=== PATIENT | female | born 1970 | race Caucasian/White ===

== ENCOUNTER → 2021-10-22 12:36 | Outpatient (CLI) | payer OTHER, SELFPAY ==
[2021-10-22 20:10] LABS: Add Manual Diff / Slide Review NO; Basophils Absolute Auto 100 /uL (0-100); Basophils Percent Auto 0.9 % (0-2); Eosinophils Absolute Auto 200 /uL (0-450); Eosinophils Percent Auto 2.7 % (2-4); Hematocrit 37.9 % (36-46); Hemoglobin 12.9 g/dL (12.0-16.0); Lymphocytes Absolute Auto 1700 /uL (1100-4500); Lymphocytes Percent Auto 26.7 % (25-40); Mean Corpuscular HGB Conc 34.1 % (30-36); Mean Corpuscular Volume 90.9 fL (80-100); Monocytes Absolute Auto 400 /uL (0-900); Neutrophils Absolute Auto 4200 /uL (1500-7000); Neutrophils Percent Auto 63.7 % (50-75); Platelet Count 255 X10^3/uL (150-400); Red Blood Cell Count 4.17 X10^6/uL (4.0-5.2); Red Cell Distribution Width 13.1 % (11.6-14.8); White Blood Cell Count 6.5 X10^3/uL (4.5-11.0)
[2021-10-22 20:33] LABS: Alanine Aminotransferase 19 IU/L (<35); Albumin 3.9 g/dL (3.5-5.0); Albumin Globulin Ratio 1.6 (1.0-2.8); Alkaline Phosphatase 61 U/L (38-126); Aspartate Aminotransferase 26 IU/L (14-36); BUN Creatinine Ratio 14.7 (6-22); Bilirubin Total 0.5 mg/dL (0.2-1.3); Blood Urea Nitrogen 11 mg/dL (7-17); Calcium 9.1 mg/dL (8.4-10.2); Carbon Dioxide 27 mmol/L (22-32); Chloride 103 mmol/L (98-107); Cholesterol 180 mg/dL (140-199); Estimated Glomerular Filt Rate > 60 mL/min (>60); Globulin 2.4 g/dL (1.7-4.1); Glucose 92 mg/dL (70-100); HDL Cholesterol 50 mg/dL (40-60); HEMOLYSIS < 15 (0-50); LDL Cholesterol Calculated 116 mg/dL (<100); Potassium 4.3 mmol/L (3.4-5.1); Sodium 135 mmol/L (137-145); Total Protein 6.3 g/dL (6.3-8.2); Triglycerides 70 mg/dL (35-150)
[2021-10-22 22:07] LABS: TSH w/ Reflex to FT4 0.72 uIU/mL (0.47-4.68)
== END ==
PROVIDERS: PCP Physician Assistant; Visit Provider Physician Assistant
DX: G62.9 Polyneuropathy, unspecified (principal); R53.83 Other fatigue; Z13.6 Encounter for screening for cardiovascular disorders
CPT/HCPCS: 80053; 80061; 84443; 85025

== ENCOUNTER → 2022-10-07 10:11 | Outpatient (CLI) | payer OTHER, SELFPAY ==
[2022-10-07 19:50] LABS: Alanine Aminotransferase 23 IU/L (<35); Albumin 3.6 g/dL (3.5-5.0); Albumin Globulin Ratio 1.3 (1.0-2.8); Alkaline Phosphatase 75 U/L (38-126); Aspartate Aminotransferase 23 IU/L (14-36); BUN Creatinine Ratio 17.7 (6-22); Bilirubin Total 0.3 mg/dL (0.2-1.3); Blood Urea Nitrogen 14 mg/dL (7-17); Calcium 8.8 mg/dL (8.4-10.2); Carbon Dioxide 26 mmol/L (22-32); Chloride 105 mmol/L (98-107); Cholesterol 175 mg/dL (140-199); Estimated Glomerular Filt Rate > 60 mL/min (>60); Globulin 2.7 g/dL (1.7-4.1); Glucose 99 mg/dL (70-100); HDL Cholesterol 46 mg/dL (40-60); HEMOLYSIS < 15 (0-50); LDL Cholesterol Calculated 112 mg/dL (<100); Potassium 4.3 mmol/L (3.4-5.1); Sodium 136 mmol/L (137-145); Total Protein 6.3 g/dL (6.3-8.2); Triglycerides 84 mg/dL (35-150)
[2022-10-07 19:55] LABS: Add Manual Diff / Slide Review NO; Basophils Absolute Auto 100 /uL (0-100); Basophils Percent Auto 0.9 % (0-2); Eosinophils Absolute Auto 200 /uL (0-450); Eosinophils Percent Auto 3.2 % (2-4); Hematocrit 37.7 % (36-46); Lymphocytes Absolute Auto 1700 /uL (1100-4500); Lymphocytes Percent Auto 22.5 % (25-40); Mean Corpuscular HGB Conc 34.4 % (30-36); Mean Corpuscular Hemoglobin 30.9 PG (26-34); Mean Corpuscular Volume 89.7 fL (80-100); Monocytes Absolute Auto 500 /uL (0-900); Monocytes Percent Auto 6.6 % (3-14); Neutrophils Absolute Auto 5000 /uL (1500-7000); Neutrophils Percent Auto 66.8 % (50-75); Platelet Count 229 X10^3/uL (150-400); Red Cell Distribution Width 14.2 % (11.6-14.8); White Blood Cell Count 7.5 X10^3/uL (4.5-11.0)
[2022-10-07 20:30] LABS: TSH w/ Reflex to FT4 0.95 uIU/mL (0.47-4.68)
[2022-10-11 12:36] LABS: 18 kD IgG Band Absent (.); 23 kD IgG Band Absent (.); 28 kD IgG Band Absent (.); 30 kD IgG Band Absent (.); 39 kD IgG Band Absent (.); 41 kD IgG Bands Absent (.); 45 kD IgG Band Absent (.); 58 kD IgG Band Absent (.); 66 kD IgG Band Absent (.); IgG P93 AB Absent (.); IgM P23 AB Absent (.); IgM P39 AB Absent (.); IgM P41 AB Absent (.); Lyme IgG Line Blot Interpretat Negative (.); Lyme IgM Line Blot Interpretat Negative (.)
== END ==
PROVIDERS: PCP Physician Assistant; Visit Provider Physician Assistant
DX: R53.83 Other fatigue (principal); Z13.6 Encounter for screening for cardiovascular disorders; Z85.72 Personal history of non-Hodgkin lymphomas; S10.96XA Insect bite of unspecified part of neck, initial encounter; S30.860A Insect bite (nonvenomous) of lower back and pelvis, initial encounter; W57.XXXA Bitten or stung by nonvenomous insect and other nonvenomous arthropods, initial encounter
CPT/HCPCS: 80053; 80061; 84443; 85025; 86617

== ENCOUNTER → 2023-08-11 09:08 | Outpatient (CLI) | payer OTHER, SELFPAY ==
--- NOTE | 2023-08-11 09:10 | DI.US.S_ITS ---
PROCEDURE: US EXTREMITY NONVASC LOWER LT INDICATIONS: left groin/upper thigh mass TECHNIQUE: Real-time scanning was performed of the left groin/upper thigh , with image documentation. COMPARISON: None. FINDINGS: Heterogeneous mass in the left upper thigh measuring 1.8 x 1.9 x 1.3 cm with a cystic component. Mild internal vascularity. The mass is located anterior/within the musculature. IMPRESSION: Heterogeneous mass in the left upper thigh measuring 1.8 x 1.9 x 1.3 cm which is indeterminate. Recommend an MRI for further evaluation. Dictated by: Jairo Jacques M.D. on 08/11/2023 at 10:36 Approved by: Jairo Jacques M.D. on 08/11/2023 at 10:38
--- NOTE | 2023-08-11 09:10 | DI.MG.S_ITS ---
BILATERAL DIGITAL SCREENING MAMMOGRAM 3D/2D WITH CAD: 08/11/2023 CLINICAL: Baseline exam. Routine screening. No prior exams were available for comparison. There are scattered areas of fibroglandular density in both breasts (category b / 25%-50% glandular tissue). Current study was also evaluated with a Computer Aided Detection (CAD) system. No significant masses, calcifications, or other findings are seen in either breast. IMPRESSION: NEGATIVE There is no mammographic evidence of malignancy. A 1 year screening mammogram is recommended. Based on the Tyrer Cuzick model (a risk assessment model) the patient's lifetime risk is 9.7% and her 10 year risk is 2.5%. According to the ACR, ACS, and NCCN guidelines, an annual breast MRI exam along with mammogram is recommended if the patient's lifetime risk is 20% or greater. This exam was interpreted at Station ID: [id number]. NOTE: For mammograms, a report in lay terms will be sent to the patient. Approximately 15% of breast malignancies will not be visualized mammographically. In the management of a palpable breast mass, a negative mammogram must not discourage biopsy of a clinically suspicious lesion. Electronically Signed By: Blake caal/naomi:08/11/2023 12:43:20 letter sent: Normal Exam ACR BI-RADS Category 1: Negative 3341F
== END ==
PROVIDERS: PCP Physician Assistant; Referring Provider Physician Assistant; Visit Provider Physician Assistant
DX: Z12.31 Encounter for screening mammogram for malignant neoplasm of breast (principal); R22.42 Localized swelling, mass and lump, left lower limb; R92.323 Mammographic fibroglandular density, bilateral breasts
CPT/HCPCS: 76882; 77063; 77067

== ENCOUNTER → 2023-08-16 08:33 | Outpatient (CLI) | payer OTHER, SELFPAY ==
--- NOTE | 2023-08-16 08:35 | DI.MRI.S_ITS ---
PROCEDURE: MR FEMUR LT WO/W CON INDICATIONS: f/u to abnormal US 08/14 TECHNIQUE: Noncontrast coronal T1 spin echo and STIR, sagittal T1 spin echo with fat saturation and STIR, axial T1 spin echo and T2 fast spin echo with fat saturation. After the administration of contrast, axial/sagittal/coronal T1 spin echo with fat saturation through the left thigh . COMPARISON: [facility], US, US EXTREMITY NONVASC LOWER LT, 08/11/2023, 9:44. FINDINGS: Image quality: Excellent. Bones: The visualized bone marrow demonstrates normal signal on all sequences. The overlying cortex appears intact. No abnormal intraosseous enhancement. Soft tissues: Oval enhancing circumscribed soft tissue mass is seen measuring 2.2 x 1.3 x 2.2 cm and corresponding to the finding on ultrasound from 08/11/2023. The lesion is located just superficial to the proximal rectus femoris muscle at the level of the lesser trochanter. The mass appears to be located along a neurovascular bundle. No other enhancing soft tissue mass is seen. No suspicious inguinal or pelvic lymphadenopathy. The visualized musculature is normal in bulk. Proximal left hamstring tendons demonstrate tendinosis. There is also distal left gluteus medius and minimus tendinosis. Varicose veins are noted in the lateral subcutaneous tissues. IMPRESSION: Oval circumscribed mass along the anterior left upper thigh superficial to the rectus femoris muscle measures up to 2.2 cm and corresponds with the prior sonographic finding. 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 Approved by: Jm Steele M.D. on 08/19/2023 at 11:27
== END ==
PROVIDERS: PCP Physician Assistant; Referring Provider Physician Assistant; Visit Provider Physician Assistant
DX: R22.42 Localized swelling, mass and lump, left lower limb (principal); Z85.72 Personal history of non-Hodgkin lymphomas
CPT/HCPCS: 73720; A9579

== ENCOUNTER → 2023-08-25 09:16 | Outpatient (CLI) | payer OTHER, SELFPAY ==
[2023-08-25 20:03] LABS: Add Manual Diff / Slide Review NO; Basophils Absolute Auto 100 /uL (0-100); Eosinophils Absolute Auto 200 /uL (0-450); Eosinophils Percent Auto 2.8 % (2-4); Hematocrit 39.3 % (36-46); Hemoglobin 13.3 g/dL (12.0-16.0); Lymphocytes Absolute Auto 1900 /uL (1100-4500); Lymphocytes Percent Auto 27.7 % (25-40); Mean Corpuscular HGB Conc 33.9 % (30-36); Mean Corpuscular Volume 91.6 fL (80-100); Monocytes Absolute Auto 400 /uL (0-900); Monocytes Percent Auto 5.6 % (3-14); Neutrophils Absolute Auto 4400 /uL (1500-7000); Neutrophils Percent Auto 62.9 % (50-75); Platelet Count 276 X10^3/uL (150-400); Red Blood Cell Count 4.29 X10^6/uL (4.0-5.2); Red Cell Distribution Width 13.3 % (11.6-14.8)
[2023-08-25 20:13] LABS: Alanine Aminotransferase 32 IU/L (<35); Albumin Globulin Ratio 1.6 (1.0-2.8); Alkaline Phosphatase 77 U/L (38-126); Aspartate Aminotransferase 32 IU/L (14-36); BUN Creatinine Ratio 19.1 (6-22); Bilirubin Total 0.7 mg/dL (0.2-1.3); Blood Urea Nitrogen 13 mg/dL (7-17); Calcium 8.9 mg/dL (8.4-10.2); Carbon Dioxide 29 mmol/L (22-32); Chloride 106 mmol/L (98-107); Cholesterol 201 mg/dL (140-199); Estimated Glomerular Filt Rate > 60 mL/min (>60); Globulin 2.5 g/dL (1.7-4.1); Glucose 103 mg/dL (70-100); HDL Cholesterol 53 mg/dL (40-60); HEMOLYSIS 19 (0-50); LDL Cholesterol Calculated 121 mg/dL (<100); Potassium 4.2 mmol/L (3.4-5.1); Sodium 138 mmol/L (137-145); Total Protein 6.5 g/dL (6.3-8.2); Triglycerides 135 mg/dL (35-150)
[2023-08-25 20:42] LABS: TSH w/ Reflex to FT4 1.02 uIU/mL (0.47-4.68)
== END ==
PROVIDERS: PCP Physician Assistant; Visit Provider Physician Assistant
DX: Z01.812 Encounter for preprocedural laboratory examination (principal); R68.83 Chills (without fever); Z85.72 Personal history of non-Hodgkin lymphomas; R22.42 Localized swelling, mass and lump, left lower limb; G62.9 Polyneuropathy, unspecified; E78.00 Pure hypercholesterolemia, unspecified
CPT/HCPCS: 80053; 80061; 84443; 85025

== ENCOUNTER 2023-09-23 07:25 | Day surgery (SDC) | payer OTHER, SELFPAY ==
--- NOTE | 2023-09-23 | PATH_ITS ---
[facility] Accession Number: [id number] No. of containers..02 Tissue . 01 Material submitted: . PART A: colon - SIGMOID POLYP PART B: rectum - RECTUM POLYP . 01 Diagnosis: Part A: SIGMOID POLYP: Hyperplastic polyp. . Part B: RECTUM POLYP: Hyperplastic polyp. [facility] 09/26/2023 1335 Local . 01 Electronically signed: . Samir Randolph MD, Pathologist NPI- [id number] . 01 Gross description: . A. Received in formalin with two patient identifiers and sigmoid polyp, is a single quezada to brown soft tissue fragment measuring 0.8 x 0.5 x 0.4 cm. Inked blue, bisected, and submitted in A1. . B. Received in formalin with two patient identifiers and rectum, is a single quezada soft tissue fragment, 0.4 cm in greatest dimension. Submitted in B1. ([id number]) /MRV 09/26/2023 1335 Local . 01 Pathologist provided ICD-10: K63.5 . 01 CPT . 510425, 894032 Specimen Comment: A courtesy copy of this report has been sent to [phone] Performed at: [address] [facility] [address], [place], [place] [id number] MD Samir Randolph MD Phone: [phone]
[2023-09-23 07:38] VITALS: BP 122/72; PULSE 83; RESP 17; TEMP 36.6; O2SAT 99
[2023-09-23] MEDS: LACTATED RINGERS 1,000 ML 42 ML IV (07:52)
--- NOTE | 2023-09-23 08:10 | PM.HP.1 ---
History of Present Illness History of Present Illness Date Patient Seen: 09/23/23 Time Patient Seen: 08:11 Chief complaint: [facility] [place] [facility] [place] Narrative: 53F with positive cologuard test here for diagnostic colonoscopy. No prior colonoscopy. No abdominal concerns [facility] Medical History Endocervical polyp Irregular menstrual cycle (~2019) Spinal stenosis of lumbar region Superficial phlebitis Back pain Malignant lymphomas of lymph nodes of multiple sites (~1994) Nicotine dependence Lumbar radiculopathy Multiple joint pain Ganglion Primary osteoarthritis, left hand Primary osteoarthritis, right hand Surgical History Anesthesia History of laminectomy (~2009) Family History Father Mental health problem Stroke Mother Hyperlipidemia Grandfather Pneumonia Grandmother Alzheimer's disease Grandfather History of heart disease Grandmother History of heart disease Social History marital status: household members: spouse lives independently: Yes pets and animals: Yes occupational status: employed Smoking Status: Current every day smoker alcohol intake: current substance use type: marijuana Meds Home Medications and Allergies Allergies Allergy/AdvReac Type Severity Reaction Status Date / Time clindamycin Allergy Severe Hives Verified 08/29/23 10:58 metronidazole Allergy Severe Hives Verified 08/29/23 10:58 amoxicillin Allergy Unknown Verified 08/29/23 10:58 codeine AdvReac Intermediate Verified 08/29/23 10:58 egg AdvReac Verified 08/29/23 10:58 walnut AdvReac Verified 08/29/23 10:58 Exam Vital Signs (past 8 hours): - 09/23/23 07:38 Temperature 97.8 F Pulse Rate 83 Respiratory Rate 17 Blood Pressure 122/72 Pulse Oximetry 99 Oxygen Delivery Method Room Air Oxygen Delivery Method Room Air Narrative Exam Narrative: General adult woman alert oriented no acute distress Chest nonlabored respiration Extremities warm well perfused Assessment & Plan Assessment and plan (1) Positive colorectal cancer screening using Cologuard test: Status: Acute Assessment & Plan narrative: Diagnostic colonoscopy indicated. Technical details were discussed. Risks, benefits, alternatives explained. Risks including but not limited to myocardial infarction, aspiration, bleeding, pain, missed lesion, incomplete examination, need for further radiographic studies, intestinal injury, and need for major abdominal surgery were discussed. All questions were answered to their satisfaction, and they are in agreement with this plan.
[2023-09-23 08:44] VITALS: BP 113/68; BP 99/58; PULSE 68; PULSE 70; RESP 17; RESP 20; TEMP 36.2; O2SAT 95; O2SAT 98
--- NOTE | 2023-09-23 08:46 | P.OP.COLON_ITS ---
Operative Date/Time/Diagnoses Date of procedure: 09/23/23 Time of procedure: 08:46 Pre-op diagnosis: Positive Cologuard Post-op diagnosis: other (Colonic polyps x2) Procedure & Clinicians Study performed: Diagnostic colonoscopy Polypectomy x2 Tattoo placement Same procedure as scheduled: Yes Indications: 53-year-old woman with a positive Cologuard test here for diagnostic colonoscopy Surgeon: Souleymane Ortiz Procedure Notes Procedure in detail: The history and physical was performed/updated and the patient is ASA class is 2. The procedure was discussed in detail with the patient. Potential risks complications including infection, bleeding, missed diagnosis, perforation, need for surgery, and were explained. Their questions were answered and informed consent was obtained. Patient was brought to the procedure room and placed standard monitoring equipment. The patient's vital signs were monitored continuously throughout the entire procedure. Prior to starting time-out was performed. The patient was placed in the left lateral recumbent position. Procedural sedation was administered by anesthesia. Examination began with a thorough inspection of the perianal area there was no evidence of fissures, fistulae, external hemorrhoids or cutaneous malignancy. The colonoscopy scope was then placed into the anal canal and was advanced to the cecum, which was identified by the ileocecal valve, the appendiceal orifice and the confluence of the taenia. The scope was then slowly withdrawn examining colon thoroughly in all directions, irrigating it of any residual stool. The scope was retroflexed within the rectum The patient tolerated the procedure well. They will be discharged once criteria are met. The prep was of good/excellent quality. The withdrawl time was 8 minutes. FINDINGS * Sigmoid colon-1 cm polyp pedunculated removed with hot snare. Site of tattoo marked with tattoo * Distal rectum 3 mm polyp removed with hot snare Specimen(s): other (Sigmoid and rectal polyp) Impression: Colonic polyps x2 Post-procedure Plan for aftercare: Follow-up is dependent on pathology findings Disposition: same day surgery
[2023-09-23 08:49] VITALS: BP 120/82; PULSE 65; RESP 12; O2SAT 99
[2023-09-23 08:54] VITALS: BP 117/81; PULSE 71; RESP 16; O2SAT 98
== END 2023-09-23 09:04 | disposition home or self-care (01) ==
PROVIDERS: PCP Physician Assistant; Referring Provider Surgery; Visit Provider Surgery
PROC: 0DJD8ZZ Inspection of Lower Intestinal Tract, Via Natural or Artificial Opening Endoscopic (ICD-10-PCS; CPT 45378; principal; 2023-09-23 08:15)
DX: Z12.11 Encounter for screening for malignant neoplasm of colon (principal); R19.5 Other fecal abnormalities; K63.5 Polyp of colon; K62.1 Rectal polyp
CPT/HCPCS: 45381; 45385; J2704

== ENCOUNTER 2023-09-26 12:14 | Outpatient (CLI) | payer OTHER, SELFPAY ==
[2023-09-26 12:35] VITALS: BP 102/64; PULSE 68; RESP 16; TEMP 36.2; O2SAT 98; BMI 32.3
--- NOTE | 2023-09-26 13:01 | DI.US.S_ITS ---
PROCEDURE: US BIOPSY SOFT TISS PEL HIP LT INDICATIONS: left thigh mass r/o malignancy TECHNIQUE: The indications, alternatives, benefits, risks, and complications of the procedure were explained to the patient. Written informed consent was obtained and placed in the chart. Real-time sonography was utilized to choose the site for percutaneous left thigh biopsy. The skin was prepped and draped in the usual sterile fashion. 1% lidocaine was infiltrated down to the site of interest. A coaxial needle was then advanced into the site of interest under direct sonographic visualization. A biopsy apparatus was then utilized, and core biopsies were obtained. The needle was then withdrawn; a bandage was applied to the biopsy site. COMPARISON: None. FINDINGS: Biopsy site(s): Left anterior thigh Needle: [employer] biopsy needle set. Number of passes: 3 Medications: 1% lidocaine for local anaesthesia. Complications: None. Note: Mass was tender to biopsy, even after administration of ample lidocaine, suggestive of a nerve sheath tumor. IMPRESSION: Successful ultrasound-guided left thigh biopsy, with pathology results pending. Dictated by: Oren William M.D. on 09/26/2023 at 15:27 Approved by: Oren William M.D. on 09/26/2023 at 15:34
--- NOTE | 2023-09-26 13:30 | PATH_ITS ---
[facility] Accession Number: [id number] No. of containers..01 Tissue . 01 Material submitted: . thigh - LEFT THIGH SOFT TISSUE MASS . 01 Diagnosis: SOFT TISSUE, LEFT THIGH MASS, NEEDLE CORE BIOPSY: Spindle cell lesion, most suggestive of schwannoma with degenerative/reactive atypia. See comment. MRV 10/02/2023 1345 Local . 01 Comment: The small sample precludes a definite diagnosis. . As part of ongoing quality tech, this case is also reviewed by Drs. Yas Bae and Devin Cline (dermatopathologists), who agree with the interpretation/diagnosis. . 01 Electronically signed: . Chaya Cash MD, Pathologist NPI- [id number] . 01 Gross description: . Received in formalin with two identifiers and no site on jar, are multiple yellow to quezada soft tissue fragments aggregating to 0.5 x 0.3 x 0.1 cm. Filtered and submitted entirely in cassette A1. ([id number]) /EL 09/30/2023 0831 Local . 01 Microscopic: . Immunostains are performed which show the lesional cells to strongly and diffusely positive for SOX-10, and negative for SMA, desmin, JORDI, JOHNNIE, and CD34. Controls stain appropriately. . * This test was developed and its performance characteristics determined by [facility]. It has not been cleared or approved by the U.S. Food and Drug Administration. The FDA has determined that such clearance or approval is not necessary. This test is used for clinical purposes. It should not be regarded as investigational or for research. . 01 Pathologist provided ICD-10: D36.13 . 01 CPT . 901408, [id number], [id number] Performed at: [address] [facility], [place], [place] [id number] MD Samir Randolph MD Phone: [phone]
--- NOTE | 2023-09-26 13:39 | SUR.PREOP ---
Patient to Ultrasound with DI tech; patient will not return to Pre-op area for discharge and will be discharged from the diagnostic imaging department.
== END 2023-09-26 13:38 | disposition home or self-care (01) ==
PROVIDERS: PCP Physician Assistant; Referring Provider Surgery; Visit Provider Surgery
DX: D36.13 Benign neoplasm of peripheral nerves and autonomic nervous system of lower limb, including hip (principal)
CPT/HCPCS: 27040; 76942